=== PATIENT | female | born 1980 | race Caucasian/White ===

== ENCOUNTER 2017-09-01 08:34 | Emergency (ER) | payer SELFPAY ==
--- NOTE | 2017-09-01 09:14 | RAD ---
INDICATION: Cough. COMPARISON: There are no prior studies available for comparison. TECHNIQUE: Dual-energy PA and lateral views of the chest were obtained. FINDINGS: The heart is within normal limits in size. Mediastinal and hilar contours appear within normal limits. The lungs are clear. No pleural effusion is present. IMPRESSION: NO EVIDENCE FOR ACTIVE CARDIOPULMONARY DISEASE.
[2017-09-01 10:44] VITALS: BP 109/64
--- NOTE | 2017-09-02 09:26 | ED ---
Doug De La Fuente Angela, scribed for Rachid Bach MD on 09/01/17 at 0851 . Influenza-Like Illness - HPI Summary HPI Summary: This pt is a 37 y/o female presenting to [facility] c/o cough, fever, and myalgia x3 days. Pt reports chest pain secondary to cough. She describes her cough as non- productive. She denies sore throat, chest pain, SOB. She denies any PMHx. LMP: February 08, 2010. - History of Current Complaint Time Seen by Provider: 09/01/17 08:36 Hx Obtained From: Patient Onset/Duration: Lasting Days, Still Present Severity: Moderate Associated Signs & Symptoms: Fever, Myalgia, Cough PMH/Surg Hx/FS Hx/Imm Hx Endocrine/Hematology History: Denies: Hx Diabetes Cardiovascular History: Denies: Hx Hypertension - Surgical History Surgery Procedure, Year, and Place: x2 - Family History Known Family History: Negative: Cardiac Disease, Hypertension, Diabetes - Social History Alcohol Use: None Substance Use Type: Reports: None Smoking Status (MU): Never Smoked Tobacco Review of Systems Positive: Fever Negative: Sore Throat, Nasal Discharge Positive: Chest Pain - secondary to cough Positive: Cough Positive: Myalgia All Other Systems Reviewed And Are Negative: Yes Physical Exam - Summary Physical Exam Summary: VITAL SIGNS: Reviewed. GENERAL: Patient is a well-developed and nourished female who is lying comfortable in the stretcher. Patient is not in any acute respiratory distress. HEAD AND FACE: No signs of trauma. No ecchymosis, hematomas or skull depressions. No sinus tenderness. EYES: PERRLA, EOMI x 2, No injected conjunctiva, no nystagmus. EARS: Hearing grossly intact. Ear canals and tympanic membranes are within normal limits. MOUTH: Oropharynx within normal limits. NECK: Supple, trachea is midline, no adenopathy, no JVD, no carotid bruit, no c- spine tenderness, neck with full ROM. CHEST: Symmetric, no tenderness at palpation LUNGS: Rales in both bases of the lungs. CVS: Regular rate and rhythm, S1 and S2 present, no murmurs or gallops appreciated. ABDOMEN: Soft, non-tender. No signs of distention. No rebound no guarding, and no masses palpated. Bowel sounds are normal. EXTREMITIES: FROM in all major joints, no edema, no cyanosis or clubbing. NEURO: Alert and oriented x 3. No acute neurological deficits. Speech is normal and follows commands. SKIN: Dry and warm Triage Information Reviewed: Yes Vital Signs On Initial Exam: Initial Vitals BP 127/80 09/01/17 08:48 Vital Signs Reviewed: Yes Diagnostics - Vital Signs Vital Signs Temp Pulse Resp BP Pulse Ox 09/01/17 10:43 98.0 F 69 16 109/64 98 09/01/17 10:30 75 99/56 98 09/01/17 10:00 69 115/68 98 09/01/17 09:30 74 119/78 99 09/01/17 09:07 77 120/75 98 09/01/17 09:00 75 99 09/01/17 08:53 98.0 F 72 18 127/80 99 09/01/17 08:50 74 99 09/01/17 08:48 127/80 - Laboratory Lab Results: Lab Results 09/01/17 09/01/17 Range/Units 09:33 09:38 Influenza A (Rapid) Negative (Negative) Influenza B (Rapid) Negative (Negative) Group A Strep Rapid Negative (Negative) Lab Statement: Any lab studies that have been ordered have been reviewed, and results considered in the medical decision making process. - Radiology Chest XR Xray Interpretation: No Acute Changes - IMPRESSION: No evidence for active cardiopulmonary disease. Dr. Bach has reviewed this radiology report. Radiology Interpretation Completed By: Radiologist Flu Symptom Course/Dx - Course Assessment/Plan: This pt is a 37 y/o female presenting [place] [facility] [place]/o cough, fever , and myalgia x3 days. Pt reports chest pain secondary to cough. She describes her cough as non-productive. She denies sore throat, chest pain, SOB. She denies any PMHx. LMP: February 08, 2010. Influenza A and B is negative, rapid strep is negative. Chest XR is negative. The pt continues to have dry cough, therefore I believe the pt has bronchitis. Since the pt also has runny nose and sinus tenderness for the last 10 days, I decided to treat the pt with Azithromycin and Tessalon tablets. Pt will be discharged to home with follow up from PCP. If symptoms worsen pt was instructed to return to the ED for further work up and management. Pt is hemodynamically stable, alert and oriented x3. - Diagnoses Differential Diagnosis/HQI/PQRI: Positive: Bronchitis, Influenza, Pneumonia, Upper Respiratory Infection Provider Diagnoses: Bronchitis, Sinusitis Discharge - Discharge Plan Condition: Stable Disposition: HOME Prescriptions: Azithromyxin HARRY (NF) [Z-Harry (Zithromax) 250 mg tabs #6] 2 tab PO .TODAY, THEN 1 DAILY #6 tab Benzonatate CAP* [Tessalon 100 MG CAP*] 100 mg PO TID #9 cap Patient Education Materials: Sinusitis (ED), Acute Bronchitis (ED) Referrals: [facility] [Outside] Non Staff,Doctor [Primary Care Provider] - Additional Instructions: Increase fluid intake Take medications as indicated. The documentation as recorded by the Doug holley Angela accurately reflects the service I personally performed and the decisions made by Isreal shine Walter, MD.
== END 2017-09-01 10:43 | disposition home or self-care (01) ==
LOC: ED 08:34
DX: J40 Bronchitis, not specified as acute or chronic (principal); J32.9 Chronic sinusitis, unspecified; R50.9 Fever, unspecified; R07.9 Chest pain, unspecified; R05 Cough
CPT/HCPCS: 71046; 87502; 87651; 99283